=== PATIENT | female | born 1950 | race Two or more races ===

== ENCOUNTER 2017-10-20 13:31 | Outpatient (CLI) | payer MEDICARE, BC ==
[~2017-10-20 13:31] MED LIST: CALCIUM PO; OS-CAL 500+D C1 EAC1 PO; VITD PO
--- NOTE | 2017-10-20 15:48 | GI Initial Consult Note ---
History of Present Illness General Date patient seen: October 20, 2017 Time patient seen: 15:42 Referring physician: None Reason for Consultation: Routine Colonoscopy screening Present Illness HPI 67 year old female patient presents today with routine colonoscopy screening. Last colonoscopy performed in 2012 with unremarkable results. In addition, she has complaint of GERD symptoms in which she takes herbal medication for relief. Also, has complaint of abdominal bloating. Doing trial run of Gluten Free diet. Denies any unintentional weight loss or changes in dietary habits. No signs of abuse or neglect. Patient is not fall risk. Home Meds Reported Medications Calcium Carbonate/Vitamin D3 (OS-MARGOT 500+D CAPLET) 1 Each Tablet, 1 EACH PO DAILY 06/14/12 Med list reviewed/reconciled: Yes Allergies: Coded Allergies: AMOXICILLIN (Verified Allergy, Severe, Anaphylaxis, 06/14/12) Latex (Unverified Allergy, Severe, 10/20/17) Penicillins (Unverified Allergy, Severe, 10/20/17) Procaine (Unverified Allergy, Severe, 10/20/17) Uncoded Allergies: CLOROX,BLEACHES,WINDEX SPRAY,DUST (Allergy, Severe, SNEEZING,SHORT OF BREATH, 06/14/12) PLASTIC TAPE (Allergy, BURNING AND ITCHING, 06/14/12) Patient History History Provided By: Patient, Medical Record PMH Narrative HTN >> managed through diet HLD Past Surgical History: other - C section Family History Narrative Mother had breast CA, lymphoma. Social History: Denies: smoking, alcohol use, drug use, other Review of Systems All Other Systems: negative except mentioned in HPI Physical Exam T 98.1 BP 145/65 P 63 98 RA WT 153.1 Sp02 EP Interpretation: reviewed, normal General Appearance: well appearing, no apparent distress, alert Head: normocephalic EENT: PERRL/EOMI, normal ENT inspection Neck: supple Respiratory: normal breath sounds, no respiratory distress Cardiovascular: normal rate Gastrointestinal: normal inspection, non tender, soft, normal bowel sounds, non -distended Rectal: deferred Genitourinary: no CVA tenderness Musculoskeletal: normal inspection, back normal Neurologic: normal inspection, alert, oriented x3, responsive Psychiatric: normal inspection, judgement/insight normal, memory normal Skin: normal inspection, normal color, no rash, warm/dry, palpation normal, well hydrated Lymphatic: normal inspection, no adenopathy GI: Plan Problems: (1) Colonoscopy planned (2) Bloating (3) GERD (gastroesophageal reflux disease) Plan EGD/colonoscopy scheduled 11/09/16. - CLD & (Nulytely/Suprep/Movi-Prep) prep instructions given and acknowledged by patient. - NPO @ [place] day prior procedure explained. - labs to be drawn day of procedure >> celiac panel Seen with Dr. Watt. Aisha Jaime N.P. October 20, 2017 15:48
== END 2017-10-20 14:05 | disposition home or self-care (01) ==
LOC: PAN 13:31
DX: K21.9 Gastro-esophageal reflux disease without esophagitis (principal); R14.0 Abdominal distension (gaseous); Z88.0 Allergy status to penicillin; Z88.6 Allergy status to analgesic agent; Z91.040 Latex allergy status; I10 Essential (primary) hypertension; E78.5 Hyperlipidemia, unspecified; Z80.3 Family history of malignant neoplasm of breast
CPT/HCPCS: 99202

== ENCOUNTER 2017-11-02 08:21 | Day surgery (SDC) | payer MEDICARE, BC ==
[~2017-11-02] VITALS: Ht 154.9 cm; Wt 68.0 kg
[2017-11-02] VITALS (9 sets, daily range): BP systolic 134–162; BP diastolic 68–80
--- NOTE | 2017-11-02 08:49 | Anethesia Preoperative Eval ---
Anesthesia Pre-op PMH/ROS General Date of Evaluation: November 02, 2017 Time of Evaluation: 08:47 Anesthesiologist: kp ASA Score: ASA 2 Mallampati Score Class I : Soft palate, uvula, fauces, pillars visible Class II: Soft palate, uvula, fauces visible Class III: Soft palate, base of uvula visible Class IV: Only hard plate visible Mallampati Classification: Class II Surgeon: tom Diagnosis: gerd/ colon screening Surgical Procedure: egd/colonoscopy Anesthesia History: none Social History: smoking - nonsmoker Family History: no anesthesia problems Allergies: Coded Allergies: AMOXICILLIN (Verified Allergy, Severe, Anaphylaxis, 06/14/12) LATEX (Unverified Allergy, Severe, 10/20/17) PENICILLINS (Unverified Allergy, Severe, 10/20/17) PROCAINE (Unverified Allergy, Severe, 10/20/17) Uncoded Allergies: CLOROX,BLEACHES,WINDEX SPRAY,DUST (Allergy, Severe, SNEEZING,SHORT OF BREATH, 06/14/12) PLASTIC TAPE (Allergy, Unknown, BURNING AND ITCHING, 10/20/17) Medications: see eMAR Past Medical History Gastrointestinal/Genitourinary: Reports: GERD Endocrine: Reports: other - menopausal Musculoskeletal/Integumentary: Reports: OA, other - back pain Anesthesia Pre-op Phys. Exam Physician Exam Constitutional: NAD Neurologic: CN 2-12 intact Cardiovascular: RRR Respiratory: CTA Gastrointestinal: S/NT/ND Airway Exam Mallampati Score: Class II MO: limited Neck: supple TMD: 2fb ROM: limited Anesthesia Pre-op A/P Labs Labs Test 11/02/17 11:15 White Blood Count 4.4 K/UL (4.8-10.8) Red Blood Count 4.40 M/UL (4.20-5.40) Hemoglobin 13.1 G/DL (12.0-16.0) Hematocrit 40.6 % (37.0-47.0) Mean Corpuscular Volume 92 FL (80-99) Mean Corpuscular Hemoglobin 29.7 PG (27.0-31.0) Mean Corpuscular Hemoglobin Concent 32.2 G/DL (32.0-36.0) Red Cell Distribution Width 11.9 % (11.6-14.8) Platelet Count 199 K/UL (150-450) Mean Platelet Volume 12.7 FL (6.5-10.1) Neutrophils (%) (Auto) 56.1 % (45.0-75.0) Lymphocytes (%) (Auto) 36.1 % (20.0-45.0) Monocytes (%) (Auto) 4.6 % (1.0-10.0) Eosinophils (%) (Auto) 1.4 % (0.0-3.0) Basophils (%) (Auto) 1.8 % (0.0-2.0) Sodium Level 142 MMOL/L (136-145) Potassium Level 3.9 MMOL/L (3.5-5.1) Chloride Level 104 MMOL/L (98-107) Carbon Dioxide Level 30 MMOL/L (21-32) Anion Gap 8 mmol/L (5-15) Blood Urea Nitrogen 15 mg/dL (7-18) Creatinine 1.0 MG/DL (0.55-1.30) Estimat Glomerular Filtration Rate 55.1 mL/min (>60) Glucose Level 167 MG/DL (74-106) Calcium Level 9.1 MG/DL (8.5-10.1) Risk Assessment & Plan Assessment: asa2 Plan: mac Status Change Before Surgery: No Pre-Antibiotics Drug: Carine Miller MD November 02, 2017 08:49
[2017-11-02] MEDS ORDERED: Lidocaine 1% MPF 10mg/ml 5ml ONE (09:00)
[2017-11-02] MEDS ORDERED: Midazolam 2mg/2ml Inj ONE (09:00)
[2017-11-02] MEDS ORDERED: Propofol 200mg/20ml IV ONE (09:00)
[2017-11-02] MEDS ORDERED: DiphenhydrAMINE 50mg/ml Inj IVP PRN (09:00)
[2017-11-02] MEDS ORDERED: Midazolam 2mg/2ml Inj IVP PRN (09:00)
[2017-11-02] MEDS ORDERED: fentaNYL 100 mcg/2 mL IV PRN (09:00)
[2017-11-02] MEDS ORDERED: Atropine Inj 1mg/10ml Syr IV PRN (09:00)
[2017-11-02] MEDS ORDERED: LEXAPRO10 MG ORAL (09:04)
[2017-11-02] MEDS ORDERED: VITAMIN D1000 UNI1 ORAL (09:04)
--- NOTE | 2017-11-02 09:30 | Pre-Procedure Note/Attestation ---
Pre-Procedure Note/Attestation Complete Prior to Procedure Planned Procedure: not applicable Procedure Narrative: esophagogastroduodenoscopy and colonoscopy Indications for Procedure Pre-Operative Diagnosis: screening colon, GERD Attestation I attest that I discussed the nature of the procedure; its benefits; risks and complications; and alternatives (and the risks and benefits of such alternatives ), prior to the procedure, with the patient (or the patient's legal factory representative). I attest that, if there was a reasonable possibility of needing a blood transfusion, the patient (or the patient's legal factory representative) was given the [facility] standardized written summary, pursuant to the Darian Azure Blood Safety Act ([place] Health and Safety Code # 1645, as amended). I attest that I re-evaluated the patient just prior to the surgery and that there has been no change in the patient's H&P, except as documented below: Osvaldo Watt MD November 02, 2017 09:30
--- NOTE | 2017-11-02 09:31 | Short Stay Surgery H&P ---
History of Present Illness History of Present Illness Chief Complaint see recent consult note HPI Jarrod Arenas is a 67 year old female who was admitted on for Gerd And Screening Patient History Allergies: Coded Allergies: AMOXICILLIN (Verified Allergy, Severe, Anaphylaxis, 06/14/12) LATEX (Unverified Allergy, Severe, 10/20/17) PENICILLINS (Unverified Allergy, Severe, 10/20/17) PROCAINE (Unverified Allergy, Severe, 10/20/17) Uncoded Allergies: CLOROX,BLEACHES,WINDEX SPRAY,DUST (Allergy, Severe, SNEEZING,SHORT OF BREATH, 06/14/12) PLASTIC TAPE (Allergy, Unknown, BURNING AND ITCHING, 10/20/17) Medication History Scheduled Cholecalciferol (Vitamin D3)* (Vitamin D*), 1,000 UNIT ORAL DAILY, (Reported) Escitalopram Oxalate* (Lexapro*), 10 MG ORAL DAILY, (Reported) Discontinued Medications Calcium Carbonate/Vitamin D3 (Os-Alberto 500+D Caplet), 1 EACH PO DAILY, (Reported) Discontinued Reason: Pt stopped taking med Physical Exam Vital Signs Last Vital Signs Date Time Temp Pulse Resp B/P (MAP) Pulse Ox O2 Delivery O2 Flow Rate FiO2 11/02/17 08:54 97.2 63 18 162/72 99 Room Air 97.2 Plan Attestation Are the patient's medical conditions optimized for surgery? Osvaldo Watt MD November 02, 2017 09:31
--- NOTE | 2017-11-02 09:58 | Endoscopy Procedure Note ---
Endoscopy Procedure Note General Indication for Procedure: screening colonscopy, GERD Procedures Performed: EGD, colonoscopy Operative Findings/Diagnosis: 2 polyps, gastritis Specimen: yes Pt Tolerated Procedure Well: Yes Estimated Blood Loss: none Anesthesia Anesthesiologist: kp Anesthesia: MAC Inserted Devices Implant(s) used?: No Quality Quality of Bowel Preparation: Excellent Did scope reach the cecum?: Yes Was there any complications?: No GI Core Measures 50 yrs or older w/o bx or poly: No 10yrs. F/U not recommended: Yes If not recommended, why?: Above average risk 10 yrs. F/U needed: Yes 18 years or older w/prev. colo: Yes <3yrs. since last colonoscopy: No Osvaldo Watt MD November 02, 2017 09:58
[2017-11-02 12:02] LABS: BASOPHILS % (AUTO) 1.8 % (0.0-2.0); EOSINOPHILS % (AUTO) 1.4 % (0.0-3.0); HEMATOCRIT 40.6 % (37.0-47.0); HEMOGLOBIN 13.1 G/DL (12.0-16.0); LYMPHOCYTES % (AUTO) 36.1 % (20.0-45.0); MEAN CORPUSCULAR VOLUME 92 FL (80-99); MONOCYTES % (AUTO) 4.6 % (1.0-10.0); NEUTROPHILS % (AUTO) 56.1 % (45.0-75.0); PLATELET COUNT 199 K/UL (150-450); RED CELL DISTRIBUTION WIDTH 11.9 % (11.6-14.8); WHITE BLOOD COUNT 4.4 K/UL (4.8-10.8)
[2017-11-02 12:10] LABS: ANION GAP 8 mmol/L (5-15); BLOOD UREA NITROGEN 15 mg/dL (7-18); CALCIUM 9.1 MG/DL (8.5-10.1); CARBON DIOXIDE 30 MMOL/L (21-32); CHLORIDE 104 MMOL/L (98-107); POTASSIUM 3.9 MMOL/L (3.5-5.1); SODIUM 142 MMOL/L (136-145)
--- NOTE | 2017-11-02 12:15 | Procedure Note ---
DATE OF PROCEDURE: 11/02/2017 SURGEON: Osvaldo Watt M.D. ANESTHESIOLOGIST: Dr. Ring PROCEDURE: Upper endoscopy with biopsy and colonoscopy with biopsy. ANESTHESIA: Per Dr. Ring. INSTRUMENT: Olympus adult flexible upper endoscope and colonoscope. INDICATION: Screening colonoscopy evaluation, chronic GERD, and abdominal pain. The procedure, risks, benefits, and possible consequences, including hemorrhage, aspiration, perforation and infection, and alternative treatments, were explained to the patient/legal guardian by Dr. Osvaldo Watt and the patient/legal guardian understood and accepted these risks. DESCRIPTION OF PROCEDURE: After informed consent was obtained and the patient was adequately sedated, first Olympus upper endoscope was advanced from the mouth into the second portion of duodenum and retroflexion was performed in the stomach. The patient had mild diffuse gastritis. Random biopsy from antrum and body was obtained to rule out H. pylori infection, otherwise the rest of the upper endoscopic examination grossly within normal limits. At this time, the upper endoscope was retrieved. The patient was turned over for colonoscopy. First, rectal exam was performed which was positive for internal hemorrhoids. Then, the scope was advanced from the rectum into the cecum documented by the appendiceal orifice, ileocecal valve, right upper quadrant palpation. Quality of prep was very good. The patient had evidence of 2 small polyps in the transverse colon, both removed with biopsy forceps technique. The rest of the examination grossly looked within normal limits. There was no obvious mass, no further polyps, no diverticulosis. Retroflexion of rectum showed evidence of medium-sized internal hemorrhoids. The patient tolerated the procedure very well without any problems. SUMMARY OF FINDINGS: 1. Gastritis, status post biopsy to rule out H. pylori infection. 2. Two colonic polyps, removed, see above for details. 3. Internal hemorrhoids. RECOMMENDATIONS: 1. Follow up biopsies and treat accordingly. 2. Recommend repeat colonoscopy in 5 years. Osvaldo Watt M.D. DR: Ricki JOB#: [id number] CC:
--- NOTE | 2017-11-02 13:22 | Immediate Post-Op Evaluation ---
Immediate Post-Op Evalulation Immediate Post-Op Evalulation Procedure: egd/colonoscopy Date of Evaluation: November 02, 2017 Time of Evaluation: 10:17 IV Fluids: 275ml 0.9ns Blood Products: none Estimated Blood Loss: negligible Blood Pressure Systolic: 155 Blood Pressure Diastolic: 81 Pulse Rate: 75 Respiratory Rate: 18 O2 Sat by Pulse Oximetry: 99 Temperature (Fahrenheit): 97.1 Pain Score (1-10): 0 Nausea: No Vomiting: No Complications none Patient Status: awake, reacts, patent Hydration Status: adequate Drug: Carine Miller MD November 02, 2017 13:22
--- NOTE | 2017-11-02 13:24 | 48 Hour Post Anesthesia Eval ---
Post Anesthesia Evaluation Procedure: egd/colonoscopy Date of Evaluation: November 02, 2017 Time of Evaluation: 10:19 Blood Pressure Systolic: 161 0: 80 Pulse Rate: 69 Respiratory Rate: 18 Temperature (Fahrenheit): 97.1 O2 Sat by Pulse Oximetry: 99 Airway: patent Nausea: No Vomiting: No Pain Intensity: 0 Hydration Status: adequate Cardiopulmonary Status: stable Mental Status/LOC: patient returned to baseline Post-Anesthesia Complications: none Follow-up care needed: N/A Carine Sol MD November 02, 2017 13:24
--- NOTE | 2017-11-02 16:27 | Cardiology Report ---
APPROVED REPORT EKG Measurement Heart [id number] OH [id number] [id number] Sinus bradycardia Otherwise normal ECG
== END 2017-11-02 11:20 | disposition home or self-care (01) ==
LOC: GAS 08:21
DX: Z12.11 Encounter for screening for malignant neoplasm of colon (principal); K21.9 Gastro-esophageal reflux disease without esophagitis; K29.50 Unspecified chronic gastritis without bleeding; D12.3 Benign neoplasm of transverse colon; K64.8 Other hemorrhoids; R00.1 Bradycardia, unspecified; Z88.0 Allergy status to penicillin; Z91.040 Latex allergy status; M19.90 Unspecified osteoarthritis, unspecified site
CPT/HCPCS: 36415; 43239; 45380; 80048; 82784; 83516; 83520; 85025; 86255; 93005; J2250; J2704; 94003; 94150

== ENCOUNTER 2017-11-15 12:06 | Outpatient (CLI) | payer MEDICARE, BC ==
[~2017-11-15 12:06] MED LIST changes: +LEXAPRO10 MG ORAL; +VITAMIN D1000 UNI1 ORAL
[2017-11-15 12:17] VITALS: BP 148/80
--- NOTE | 2017-11-15 16:32 | GI Progress Note ---
Assessment/Plan Problems: (1) GERD (gastroesophageal reflux disease) ICD Codes: K21.9 - Gastro-esophageal reflux disease without esophagitis SNOMED: 003056273 (2) Bloating ICD Codes: R14.0 - Abdominal distension (gaseous) SNOMED: 126386173 Status: stable Status Narrative Seen with Dr. Watt. Assessment/Plan SUMMARY OF FINDINGS reviewed patient: 1. Gastritis, status post biopsy to rule out H. pylori infection. 2. Two colonic polyps, removed, see above for details. 3. Internal hemorrhoids. RECOMMENDATIONS: 1. Follow up biopsies and treat accordingly. >> negative for H. Pylori 2. Recommend repeat colonoscopy in 5 years. RTC PRN Subjective Gastrointestinal/Abdominal: Reports: no symptoms Objective Last 24 Hour Vital Signs Date Time Temp Pulse Resp B/P (MAP) Pulse Ox O2 Delivery O2 Flow Rate FiO2 11/15/17 12:17 97.9 62 16 148/80 98 97.9 General Appearance: WD/WN, no apparent distress, alert Cardiovascular: normal rate Respiratory/Chest: normal breath sounds, no respiratory distress Abdominal Exam: normal bowel sounds, non tender, soft Extremities: normal range of motion, non-tender Jose Carlos Jaime NP November 15, 2017 16:32
== END 2017-11-15 12:41 | disposition home or self-care (01) ==
LOC: PAN 12:06
DX: K21.9 Gastro-esophageal reflux disease without esophagitis (principal); R14.0 Abdominal distension (gaseous); K29.70 Gastritis, unspecified, without bleeding; K63.5 Polyp of colon; K64.8 Other hemorrhoids
CPT/HCPCS: 99212